=== PATIENT | female | born 1990 | race Caucasian/White ===

== ENCOUNTER 2021-07-20 06:12 | Day surgery (SDC) | payer BC, SELFPAY ==
[~2021-07-20] VITALS: Ht 160 cm; Wt 95.3 kg
[2021-07-20 06:43] LABS: HCG,QUAL RESULT NEGATIVE (NEGATIVE)
[2021-07-20] MEDS ORDERED: ACETAMINOPHEN I.V. 1000 MG 100 ML IV ONE (07:07)
[2021-07-20] MEDS ORDERED: NS 1000 ML IV.SOLN IV ONE (07:33)
[2021-07-20] MEDS ORDERED: LIDOCAINE/EPI MPF 1%1:200000 30 ML VIAL INJ ONE (07:33)
[2021-07-20] MEDS ORDERED: fentaNYL CITRATE/PF 100 MCG/2 ML AMP IVP ONE (07:33)
[2021-07-20] MEDS ORDERED: EPINEPHrine 1 MG/ML VIAL IV ONE (07:33)
[2021-07-20] MEDS ORDERED: ONDANSETRON HCL 4 MG/2 ML VIAL IVP ONE (07:33)
[2021-07-20] MEDS ORDERED: ROCURONIUM BROMIDE 10 MG/ML (ZEMURON) IV ONE (07:33)
[2021-07-20] MEDS ORDERED: SUGAMMADEX SODIUM 200 MG/2 ML VIAL IV ONE (07:33)
[2021-07-20] MEDS ORDERED: DEXAMETHASONE SOD PHOSPHATE 4 MG/ML VIAL IVP ONE (07:33)
[2021-07-20] MEDS ORDERED: PROPOFOL 200MG/ 20ML VIAL (DIPRIVAN) IV ONE (07:33)
[2021-07-20] MEDS ORDERED: LIDOCAINE 2%, 20 ML MDV INJ ONE (07:33)
[2021-07-20] MEDS ORDERED: DESFLURANE 15 MIN GAS INH ONE (07:33)
[2021-07-20] MEDS ORDERED: LR 1,000 ML IV.SOLN IV ONE (07:33)
[2021-07-20] MEDS ORDERED: MIDAZOLAM HCL 5 MG/5 ML VIAL IVP ONE (07:33)
[2021-07-20] MEDS ORDERED: HYDROmorphone 1 MG/ML INJ. CARTRIDGE IVP PRN ×2 (08:45)
[2021-07-20] MEDS ORDERED: MEPERIDINE HCL/PF 25 MG/ML DISP.SYRIN IVP PRN (08:45)
[2021-07-20] MEDS ORDERED: LR 1,000 ML IV SCH (08:45)
[2021-07-20] MEDS ORDERED: MIDAZOLAM HCL 2 MG/2 ML VIAL (VERSED) IVP PRN (08:45)
[2021-07-20] MEDS ORDERED: METOCLOPRAMIDE HCL 10 MG/2 ML VIAL IVP PRN (08:45)
[2021-07-20] MEDS ORDERED: HYDROmorphone 1 MG/ML INJ. CARTRIDGE IVP ONE (11:25)
[2021-07-20] MEDS ORDERED: HYDROmorphone 1 MG/ML INJ. CARTRIDGE ONE (11:29)
[2021-07-20 13:31] VITALS: BP_SYST 127
== END 2021-07-20 13:20 | disposition home or self-care (01) ==
LOC: SDS 06:12 → SMU 06:16 → SDS 13:20
PROVIDERS: ATTEND Otolaryngology
DX: J34.89 Other specified disorders of nose and nasal sinuses (principal); D38.5 Neoplasm of uncertain behavior of other respiratory organs; J34.2 Deviated nasal septum; J45.20 Mild intermittent asthma, uncomplicated; J45.909 Unspecified asthma, uncomplicated; K21.9 Gastro-esophageal reflux disease without esophagitis; E66.9 Obesity, unspecified; Z79.899 Other long term (current) drug therapy; Z20.822 Contact with and (suspected) exposure to COVID-19
CPT/HCPCS: 30140; 30520; 31255; 31287; 31295; 31296; 84703; 87070 ×2; 87075; 87101; 88304; 88305; 88311; C1726; J0131; J0171; J1100; J1170; J2001; J2250; J2405; J2704; J3010; J3490; J7030; J7120; U0003; 88313